=== PATIENT | male | born 1950 | race Caucasian/White ===

== ENCOUNTER 2018-12-07 10:56 | Emergency (ER) | payer OTHER, MEDICARE ==
[2018-12-07 11:48] VITALS: BP 119/69
[2018-12-07] MEDS ORDERED: Lidocaine 2% PF * 5 ML VIAL INJ ONE (12:10)
[2018-12-07] MEDS ORDERED: Lidocaine 2% PF * 5 ML VIAL ONE (12:12)
--- NOTE | 2018-12-07 12:49 | UC ---
Laceration HPI - HPI Summary HPI Summary: Cut R index w/ a circular table saw. A couple of hours ago and does not think its broken. Able to bend finger, open close hand w/ no issues. Little to no pain. - History Of Current Complaint Chief Complaint: UCLaceration Stated Complaint: RIGHT INDEX FINGER LACERATION Time Seen by Provider: 12/07/18 11:52 Hx Obtained From: Patient Laceration Location: Finger Mechanism Of Injury: Sharp Trauma Pain Intensity: 0 Pain Scale Used: 0-10 Numeric Hands: 1 - approx 1 in. laceration - Allergies/Home Medications Allergies/Adverse Reactions: Allergies Allergy/AdvReac Type Severity Reaction Status Date / Time No Known Allergies Allergy Verified 12/07/18 11:42 Home Medications: Home Medications Aspirin [Aspir-Low] 81 mg PO DAILY 12/07/18 [History Confirmed 12/07/18] Glucosam/Chond-MSM 2/C/D3/Manjinder [Rssnmsvugg-Stkdlbcykpp-IVM Tab] 1 each PO DAILY 12/07/18 [History Confirmed 12/07/18] Multivitamin [Multivitamins] 1 cap PO DAILY 12/07/18 [History Confirmed 12/07/18 ] [place]-3 Fatty Acids/Fish Oil [Fish Oil 1,000 mg Capsule] 1 each PO DAILY [History Confirmed 12/07/18] PMH/Surg Hx/FS Hx/Imm Hx Previously Healthy: Yes - Surgical History Surgical History: Yes Surgery Procedure, Year, and Place: hip replacement - Social History Alcohol Use: Occasionally Substance Use Type: None Smoking Status (MU): Heavy Every Day Tobacco Smoker Type: Cigarettes Amount Used/How Often: 1 PPD Household Exposure Type: Cigarettes - Immunization History Most Recent Tetanus Shot: unknown Review of Systems All Other Systems Reviewed And Are Negative: Yes Constitutional: Positive: Negative Skin: Positive: Other - R index laceration. Negative: Bruising Respiratory: Positive: Negative Neurovascular: Negative: Decreased Sensation, Decreased Pulses Neurological: Negative: Numbness Physical Exam Triage Information Reviewed: Yes Appearance: Well-Appearing Vital Signs: Initial Vital Signs Temp 98.6 F 12/07/18 11:44 Pulse 70 12/07/18 11:44 Resp 16 12/07/18 11:44 BP 119/69 12/07/18 11:44 Pulse Ox 95 12/07/18 11:44 Vital Signs Reviewed: Yes Musculoskeletal: Positive: Other: - r wrist unremarkable. R fingers/hand can open/close w/out issue. Minimal bleeding. Neurological: Positive: Muscle Tone Normal - R hand Skin: Positive: Other - R index laceration approx. 1 in. long. No joint involvement. No nail involvement. Laceration Repair - Laceration Repair 1 Description: Linear Laceration Size After Repair: Length (cm) - approx 1 in. Type Injection: Digital Anesthesia Used: 2.0% Lido Closure Material: SteriStrips - 3, Sutures - 2 Closure Method: Single Layer Suture Of: Skin Suture Type: Prolene Diagnostics - Radiology No standard instances Radiology Interpretation Completed By: Radiologist Summary of Radiographic Findings: IMPRESSION: 1. The distal tip of the second finger is lacerated. 2. A subtle nondisplaced fracture at the ventral tip of the distal second phalanx is. suspected (seen on lateral view). 3. 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 Laceration Course/Dx - Course/Dx Course Of Treatment: R index laceration w/ 2 suture repair and 3 steri strips w / a suspected fx at the distal phalanx/sublte. Minimal bleeding and neurovascularly intact. Wound was initially cleaned and draped. repaired in sterile technique. - Differential Dx - Laceration/Wound Differental Diagnoses: Foreign Body, Fracture, Laceration - Diagnosis Provider Diagnosis: Finger laceration, Fracture, finger Discharge - Sign-Out/Discharge Documenting (check all that apply): Patient Departure All imaging exams completed and their final reports reviewed: Yes - Discharge Plan Condition: Good Disposition: HOME Prescriptions: Amoxicillin/Clavulanate TAB* [Augmentin TAB 875*] 875 mg PO BID 5 Days #20 tab Ibuprofen [Ibu] 600 mg PO TID #90 tablet Patient Education Materials: Care For Your Stitches (DC) Referrals: Ronald Neal MD [Medical Doctor] - Additional Instructions: Please keep area clean. PLEASE RETURN IN 12-14 DAYS FOR SUTURE REMOVAL. - Billing Disposition and Condition Condition: GOOD Disposition: Home
[2018-12-07] MEDS ORDERED: Tetan/Diph/Pertus SYR(Tdap)* 0.5 ML SYR(BOOSTRIX) use SYR IM ONE (12:56)
== END 2018-12-07 13:10 | disposition home or self-care (01) ==
LOC: UCCORT 10:56
DX: S62.660A Nondisplaced fracture of distal phalanx of right index finger, initial encounter for closed fracture (principal); S61.210A Laceration without foreign body of right index finger without damage to nail, initial encounter; W31.2XXA Contact with powered woodworking and forming machines, initial encounter; Y93.9 Activity, unspecified; Y92.9 Unspecified place or not applicable; Z23 Encounter for immunization; M89.44 Other hypertrophic osteoarthropathy, hand; Z79.82 Long term (current) use of aspirin; Z96.649 Presence of unspecified artificial hip joint; F17.210 Nicotine dependence, cigarettes, uncomplicated
CPT/HCPCS: 12002; 73140; 90471; 90715; 99212; G0463